=== PATIENT | female | born 1985 | race Caucasian/White ===

== ENCOUNTER 2018-02-11 04:19 | Emergency (ER) | payer OTHER, MEDICAID ==
[2018-02-11 04:29] VITALS: BP 94/62
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
[2018-02-11] MEDS ORDERED: TYLENOL PO ONE (05:06)
== END 2018-02-11 05:27 | disposition home or self-care (01) ==
LOC: ED 04:19
DX: O9A.212 Injury, poisoning and certain other consequences of external causes complicating pregnancy, second trimester (principal); S39.012A Strain of muscle, fascia and tendon of lower back, initial encounter; J45.909 Unspecified asthma, uncomplicated; V49.49XA Driver injured in collision with other motor vehicles in traffic accident, initial encounter; Y93.89 Activity, other specified; Y92.89 Other specified places as the place of occurrence of the external cause; Y99.8 Other external cause status
CPT/HCPCS: 99282

== ENCOUNTER 2018-04-20 22:11 | Outpatient (CLI) | payer MEDICAID ==
[2018-04-20 22:32] VITALS: BP 99/67
[2018-04-20] MEDS ORDERED: LACTATED RINGERS 1,000 ML IV ONE (23:35)
[2018-04-21 00:25] LABS: Bilirubin,Urine NEG (Negative); Blood,Urine SM (Negative); Color,Urine Yellow (Yellow); Mucus,Urine FEW /HPF; Protein,Urine <15 mg/dL mg/dL (Negative); Urobilinogen,Urine < 2.0 mg/dL (<2.0); WBC,Urine < 1.0 /HPF (0.0-6.0)
== END 2018-04-21 00:51 | disposition home or self-care (01) ==
LOC: TRG 22:11
PROVIDERS: ATTEND Obstetrics & Gynecology
DX: O62.9 Abnormality of forces of labor, unspecified (principal); Z3A.34 34 weeks gestation of pregnancy
CPT/HCPCS: 59025; 81001

== ENCOUNTER 2018-05-08 14:15 | Outpatient (CLI) | payer MEDICAID | END 2018-05-08 16:21 | disposition home or self-care (01) | LOC: TRG 14:15 | PROVIDERS: ATTEND Obstetrics & Gynecology | DX: O47.03 False labor before 37 completed weeks of gestation, third trimester (principal); Z3A.36 36 weeks gestation of pregnancy | CPT/HCPCS: 59025 ==

== ENCOUNTER 2018-05-15 18:02 | Outpatient (CLI) | payer MEDICAID ==
[2018-05-15] MEDS ORDERED: LACTATED RINGERS 500 ML IV ONE (18:45)
[2018-05-15 22:16] VITALS: BP 94/54
[2018-05-15] MEDS ORDERED: VISTARIL PO ONE (22:37)
== END 2018-05-15 22:43 | disposition home or self-care (01) ==
LOC: TRG 18:02
PROVIDERS: ATTEND Obstetrics & Gynecology
DX: O47.03 False labor before 37 completed weeks of gestation, third trimester (principal); Z3A.28 28 weeks gestation of pregnancy
CPT/HCPCS: 59025; Q0177

== ENCOUNTER 2018-05-17 13:23 | Outpatient (CLI) | payer MEDICAID ==
[2018-05-17 13:39] VITALS: BP 101/62
== END 2018-05-17 14:22 | disposition home or self-care (01) ==
LOC: TRG 13:23
PROVIDERS: ATTEND Obstetrics & Gynecology
DX: O47.1 False labor at or after 37 completed weeks of gestation (principal); Z3A.38 38 weeks gestation of pregnancy
CPT/HCPCS: 59025

== ENCOUNTER 2018-05-19 01:08 | Inpatient (IN) | payer MEDICAID ==
[2018-05-19] MEDS ORDERED: PITOCin/NS 20 UNIT/1000ML DRIP 20,000 MILLIUNITS/1,000 ML BAG IV ONE (01:16)
[2018-05-19] MEDS ORDERED: XYLOCAINE 2% INFILTRATI ONE ×2 (01:16→02:18)
[2018-05-19] MEDS ORDERED: SUBLIMAZE ONE (01:57)
[2018-05-19] MEDS ORDERED: PITOCin/NS 20 UNIT/1000ML DRIP 20 UNITS/1,000 ML BAG IV SCH ×3 (02:00→03:00)
[2018-05-19] MEDS ORDERED: SUBLIMAZE IV ONE (02:05)
[2018-05-19] MEDS ORDERED: BRETHINE IVP PRN (02:18)
[2018-05-19] MEDS ORDERED: MINERAL OIL PO PRN (02:18)
[2018-05-19] MEDS ORDERED: POLYCILLIN/NS 2 GM/100 ML 2 GM/100 ML BAG IV ONE (02:18)
[2018-05-19] MEDS ORDERED: ePHEDrine SULFATE IV PRN (02:18)
[2018-05-19] MEDS ORDERED: ZOFRAN IV PRN ×2 (02:18→02:22)
[2018-05-19] MEDS ORDERED: BRETHINE SUB-Q PRN (02:18)
[2018-05-19] MEDS ORDERED: NARCAN 0.4 MG/1 ML IV PRN (02:18)
[2018-05-19] MEDS ORDERED: BENADRYL PO PRN (02:22)
[2018-05-19] MEDS ORDERED: LANSINOH TP PRN (02:22)
[2018-05-19] MEDS ORDERED: TYLENOL PO PRN (02:22)
[2018-05-19] MEDS ORDERED: NORCO 5/325 PO PRN (02:22)
[2018-05-19] MEDS ORDERED: TORADOL IV PRN (02:22)
[2018-05-19] MEDS ORDERED: PHENERGAN PR PRN (02:22)
[2018-05-19] MEDS ORDERED: MILK OF MAGNESIA PO PRN (02:22)
[2018-05-19] MEDS ORDERED: PERCOCET 5/325 PO PRN (02:22)
[2018-05-19] MEDS ORDERED: DULCOLAX PR PRN (02:22)
[2018-05-19] MEDS ORDERED: TUCKS PAD TP PRN (02:22)
[2018-05-19] MEDS ORDERED: PHENERGAN PO PRN (02:22)
--- NOTE | 2018-05-19 02:29 | History and Physical Report ---
History of Present Illness Date of examination: 05/19/18 Date of admission: 05/19/18 01:16 Chief complaint: labor History of present illness: This is a 33 yo at 38+4 came into triage c/o contractions. Noted to be bulging bag at 10cm. she is patient of [facility] with hx of ptl/PTD on arthur. 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 GBS neg. Past History Past Medical History: no pertinent history Past Surgical History: no surgical history Family/Genetic History: diabetes (Grandmother), heart disease (Grandmother), hypertension (Grandmother) Social history: denies: smoking, alcohol abuse, prescription drug abuse - Obstetrical History Expected Date of Delivery: 05/29/18 Actual Gestation: 38 Week(s) 4 Day(s) : 5 Para: 4 Hx # Term Pregnancies: 3 Number of Pregnancies: 1 Spontaneous Abortions: 0 Induced : 0 Number of Living Children: 4 Medications and Allergies Allergies Allergy/AdvReac Type Severity Reaction Status Date / Time No Known Allergies Allergy Verified 04/20/18 23:39 Active Meds: Active Medications Ephedrine Sulfate (Ephedrine Sulfate) 10 mg IV Q2M PRN PRN Reason: Hypotension Oxytocin/Sodium Chloride (Pitocin/Ns 20 Unit/1000ml Drip) 20 units in 1,000 mls @ 0 mls/hr IV DIRECT ANAI Ampicillin Sodium (Polycillin/Ns 2 Gm/100 Ml) 2 gm in 100 mls @ 100 mls/hr IV ONCE ONE; Protocol Stop: 05/19/18 03:17 Lactated Ringer's (Lactated Ringers) 1,000 mls @ 125 mls/hr IV DIRECT ANAI Oxytocin/Sodium Chloride (Pitocin/Ns 20 Unit/1000ml Drip) 20 units in 1,000 mls @ 125 mls/hr IV DIRECT ANAI Oxytocin/Sodium Chloride (Pitocin/Ns 30 Unit/500ml) 30 units in 500 mls @ 1 mls /hr IV TITR ANAI; Protocol Oxytocin/Sodium Chloride (Pitocin/Ns 30 Unit/500ml) 30 units in 500 mls @ 0 mls /hr IV TITR ANAI; Protocol Lidocaine (Xylocaine 2%) 20 ml INFILTRATI ONCE ONE Stop: 05/19/18 02:19 Mineral Oil (Mineral Oil) 30 ml PO QHS PRN PRN Reason: Constipation Naloxone HCl (Narcan 0.4 Mg/1 Ml) 0.1 mg IV Q2MIN PRN PRN Reason: Res Rate </= 8 or 02 SAT < 92% Ondansetron HCl (Zofran) 4 mg IV Q8H PRN PRN Reason: Nausea And Vomiting Terbutaline Sulfate (Brethine) 0.25 mg SUB-Q ONCE PRN PRN Reason: Hyperstimulation/Hypertonicity Terbutaline Sulfate (Brethine) 0.25 mg IVP ONCE PRN PRN Reason: Hyperstimulation/Hypertonicity Review of Systems All systems: negative Genitourinary: contractions - Vital Signs Vital signs: Vital Signs Temp Resp 97.9 F 20 05/19/18 02:07 05/19/18 02:07 Temp Pulse Resp BP Pulse Ox 97.9 F 78 20 87/49 05/19/18 02:07 05/19/18 02:26 05/19/18 02:07 05/19/18 02:26 - Physical Exam Breasts: Positive: normal Cardiovascular: Regular rate, Normal S1 Lungs: Positive: Clear to auscultation, Normal air movement Abdomen: Positive: normal appearance, soft, normal bowel sounds. Negative: distention, tenderness, guarding Genitourinary (Female): Positive: normal external genitalia, normal perenium Vulva: both: normal Uterus: Positive: normal size, normal contour Deep Tendon Reflex Grade: Normal +2 - Obstetrical FHR: category 1 Uterine Contraction Monitor Mode: Palpation Cervical Dilatation: 10 Cervical Effacement Percentage: 100 station: 0 Uterine Contraction Pattern: Regular Uterine Tone Measurement Phase: Contraction Uterine Contraction Intensity: Strong/Firm Results All other labs normal. Assessment and Plan A/P IUP 38+3 weeks Active labor GBS neg IVF, labs expect vaginal delivery
--- NOTE | 2018-05-19 02:36 | Procedure Note ---
OB Delivery Note - Delivery Date of Delivery: 05/19/18 Surgeon: DINORAH DESOUZA Estimated blood loss: 300cc - Vaginal Delivery presentation: vertex Delivery position: OP Intrapartum events: precipitous labor- <3hr Delivery augmentation: rupture of membranes Delivery monitor: external FHT, external uterine Route of delivery: vacuum extraction Indicators for instrumentation: maternal exhaustion Delivery placenta: spontaneous Delivery cord: 3 umbilical vessels Episiotomy: none Delivery laceration: 1st degree Delivery repair: vicryl Anesthesia: local Delivery comments: 33 y/o now P 4104 experienced vacuum assisted delivery over intact perineum, on 05/19/18 @ 0154. The vacuum was placed at (+2) station, OP position after bladder emptied and anesthesia found to be adequate. Infant was delivered within 1 pull without complication. The infant's head was delivered in a controlled manner. The OP and nares were then bulb suctioned on the perineum. Amniotic fluid was clear. No nuchal cord identified. The infant's body was then delivered in the usual manner without difficulty. The cord was clamped and cut. The was handed to the nurse in attendance. The placenta delivered intact with 3VC followed by 30 units of Pitocin IV and uterine massage for hemostasis. [id number]. A first degree lac was repaired in the usual manner with 2-0 vicryl. The cervix and vagina were inspected for lacs and none were noted. The infant, viable female Apgars 7 and 9 and weight 2809g. Needle and laps correct x 2. - A at 1 minute: 9 at 5 minutes: 9 Infant Gender: Female
[2018-05-19 02:42] LABS: Hematocrit 35.7 % (30.3-42.9); Mean Corpuscular HGB Conc 34 % (30-34); Mean Corpuscular Hemoglobin 30 pg (28-32); Mean Corpuscular Volume 88 fl (79-97); Platelet Count 198 K/mm3 (140-440); Red Blood Count 4.04 M/mm3 (3.65-5.03); Red Cell Distribution Width 14.2 % (13.2-15.2)
[2018-05-19] MEDS ORDERED: LACTATED RINGERS 1,000 ML IV SCH (03:00)
[2018-05-19] MEDS ORDERED: PITOCin/NS 30 UNIT/500ML 30 UNITS/500 ML BAG IV SCH ×2 (03:00)
[2018-05-19] MEDS ORDERED: SODIUM CHLORIDE FLUSH SYRINGE 10 ML IV PRN (03:00)
[2018-05-19] MEDS: MOTRIN PO SCH ×4 (03:10→18:08)
[2018-05-19] MEDS: SENOKOT S PO SCH ×2 (10:57→22:07)
[2018-05-19] MEDS: PRENATAL VITAMIN PO SCH (13:12)
[2018-05-19] MEDS: COLACE PO SCH ×2 (13:13→22:07)
[2018-05-19 16:22] LABS: Hematocrit 34.8 % (30.3-42.9); Hemoglobin 11.8 gm/dl (10.1-14.3)
[2018-05-20] MEDS: MOTRIN PO SCH ×2 (00:19→09:03)
[2018-05-20] MEDS ORDERED: M-M-R II VACCINE SUB-Q ONE (02:22)
[2018-05-20] MEDS ORDERED: BOOSTRIX IM ONE (06:00)
[2018-05-20] MEDS: PRENATAL VITAMIN PO SCH (10:01)
[2018-05-20 13:44] VITALS: BP 92/44
--- NOTE | 2018-05-20 14:12 | Progress Note ---
Assessment and Plan PPD 1 s/p VAVD. Doing well. Patient ready for discharge on today. Subjective - Subjective Date of service: 05/20/18 Patient reports: appetite normal, voiding normally, pain well controlled, ambulating normally : doing well Objective - Vital Signs Latest vital signs: Vital Signs Temp Pulse Resp BP 05/20/18 13:00 98.4 F 94 H 18 92/44 05/20/18 08:13 98.2 F 61 18 92/45 05/20/18 00:19 16 05/20/18 00:00 98.6 F 63 18 101/56 Intake and Output 05/19/18 05/20/18 05/20/18 22:59 06:59 14:59 Intake Total 240 600 Output Total 1000 Balance -760 600 Intake: Oral 240 600 Output: Urine 1000 Void 1000 Other: Total, Intake Amount 240 360 Total, Output Amount 1000 # Voids Void 1 1 1 - Exam Cardiovascular: Present: Regular rate, Normal S1, Normal S2 Lungs: Present: Clear to auscultation, Normal air movement Abdomen: Present: normal appearance, soft Uterus: Present: normal, firm, fundal height below umbilicus Deep Tendon Reflex Grade: Normal +2
--- NOTE | 2018-05-20 14:16 | Discharge Summary ---
Providers - Providers Date of Admission: 05/19/18 01:16 Date of discharge: 05/20/18 Attending physician: DINORAH DESOUZA MD Primary care physician: DINORAH DESOUZA MD Hospitalization Reason for admission: active labor Delivery: vacuum extraction Other procedures: none complications: none Discharge diagnosis: IUP at term delivered [place] baby: male Hospital course: unremarkable Condition at discharge: Good Disposition: DC-01 TO HOME OR SELFCARE Plan - Discharge Medications Prescriptions: Docusate Sodium [Colace] 100 mg PO BID PRN #30 capsule PRN Reason: Constipation Ferrous Sulfate 325 mg PO BID #30 tablet. Ibuprofen [Motrin] 600 mg PO Q8H PRN #30 tablet PRN Reason: Pain oxyCODONE /ACETAMINOPHEN [Percocet 5/325] 1 tab PO Q6HR PRN #30 tablet PRN Reason: Pain - Provider Discharge Summary Activity: routine, no sex for 6 weeks, no heavy lifting 4 weeks, no strenuous exercise Diet: routine Instructions: routine Additional instructions: [] Smoking cessation referral if applicable(refer to patient education folder for contact #) [] Refer to [facility] Booklet Call your doctor immediately for: * Fever > 100.5 * Heavy vaginal bleeding ( >1 pad per hour) * Severe persistent headache * Shortness of breath * Reddened, hot, painful area to leg or breast * Drainage or odor from incision. * Keep incision clean and dry at all times and follow doctor's instructions regarding bathing/showering - Follow up plan Follow up: DINORAH DESOUZA MD [Primary Care Provider] - 6 Weeks Forms: [facility] Discharge Summary
== END 2018-05-20 15:05 | disposition home or self-care (01) | DRG 775 ==
LOC: TRG 01:08 → LD 01:16 → OB 03:33
PROVIDERS: ADMIT Obstetrics & Gynecology; ATTEND Obstetrics & Gynecology
PROC: 10D07Z6 Extraction of Products of Conception, Vacuum, Via Natural or Artificial Opening (ICD-10-PCS; 2018-05-19)
PROC: 0HQ9XZZ Repair Perineum Skin, External Approach (ICD-10-PCS; 2018-05-19)
PROC: 3E0234Z Introduction of Serum, Toxoid and Vaccine into Muscle, Percutaneous Approach (ICD-10-PCS; principal; 2018-05-20)
DX: O62.3 Precipitate labor (principal); Z3A.38 38 weeks gestation of pregnancy; Z37.0 Single live birth; Z23 Encounter for immunization; Z83.3 Family history of diabetes mellitus; Z82.49 Family history of ischemic heart disease and other diseases of the circulatory system; O70.0 First degree perineal laceration during delivery
CPT/HCPCS: 36415; 85014; 85018; 85027; 86592; 86850; 86900; 86901; J2590; J3010